=== PATIENT | female | born 1965 | race Caucasian/White ===

== ENCOUNTER 2020-04-18 08:49 | Outpatient (CLI) | payer OTHER ==
--- NOTE | 2020-04-18 09:07 | RAD ---
Exam: Right elbow 4 views: HISTORY: Right elbow pain, old injury COMPARISON: None FINDINGS: Slight fullness of the anterior fat pad, possible small joint effusion. No evidence for fracture, dislocation, or other significant acute osseous abnormality. IMPRESSION: No significant acute process. If patient has persistent nonresolving pain, consider nonemergent follow-up MRI.
== END 2020-04-18 08:50 | disposition home or self-care (01) ==
LOC: BICRAD 08:49
PROVIDERS: ATTEND Family Medicine
DX: M25.521 Pain in right elbow (principal)

== ENCOUNTER 2020-04-27 09:21 | Outpatient (CLI) | payer OTHER | END 2020-04-27 09:22 | disposition home or self-care (01) | LOC: BICMAMMO 09:21 | PROVIDERS: ATTEND Family Medicine | DX: Z12.31 Encounter for screening mammogram for malignant neoplasm of breast (principal) | CPT/HCPCS: 77067 ==

== ENCOUNTER 2020-05-12 10:52 | Outpatient (CLI) | payer OTHER | END 2020-05-12 10:53 | disposition home or self-care (01) | LOC: BICRAD 10:52 | PROVIDERS: ATTEND Family Medicine | DX: M25.511 Pain in right shoulder (principal); G89.29 Other chronic pain; J41.1 Mucopurulent chronic bronchitis; M19.011 Primary osteoarthritis, right shoulder ==

== ENCOUNTER 2020-06-14 08:34 | Outpatient (CLI) | payer OTHER | END 2020-06-14 08:35 | disposition home or self-care (01) | LOC: BICMAMMO 08:34 | PROVIDERS: ATTEND Family Medicine | DX: Z13.820 Encounter for screening for osteoporosis (principal); Z78.0 Asymptomatic menopausal state; M85.89 Other specified disorders of bone density and structure, multiple sites | CPT/HCPCS: 77080 ==

== ENCOUNTER 2024-03-20 10:43 | Inpatient (IN) | payer OTHER ==
[2024-03-20 12:19] LABS: #Basophils 0.05 10x3/uL (0.0-0.2); #Eosinophils Less than 0.03 10x3/uL (0.0-0.7); %Basophils 0.8 % (0.0-1.0); %Eosinophils 0.2 % (0.0-10.0); %Lymphocytes 42.5 % (21.0-51.0); %Monocytes 6.8 % (0.0-10.0); %Neutrophils 49.4 % (42.0-75.0); Hematocrit 38.9 % (36.0-47.0); Hemoglobin 12.8 g/dL (12.0-16.0); Mean Corpuscular HGB CONC 32.9 g/dL (32.0-36.0); Mean Corpuscular Hemoglobin 32.1 pg (27.0-31.0); Mean Corpuscular Volume 97.5 fL (78.0-98.0); Mean Platelet Volume 9.5 fL (7.4-10.4); Platelet Count 225 10x3/uL (130-400); RBC Distribution Width 13.6 % (11.5-14.5); Red Blood Cell (RBC) Count 3.99 mill/uL (4.20-5.40)
[2024-03-20 12:34] LABS: ALT (SGPT) 58 U/L (Less than 34); AST (SGOT) 54 U/L (11-34); Albumin 3.7 g/dL (3.1-4.5); Alkaline Phosphatase 80 U/L (40-110); Anion Gap 11 mmol/L (10-20); BUN (Urea Nitrogen) 16 mg/dL (9.8-20.1); Bilirubin, Total 0.2 mg/dL (0.3-1.2); Calc. Creatinine Clearance 0 mL/min (70-130); Calcium 9.2 mg/dL (7.8-10.44); Carbon Dioxide 27 mmol/L (22-29); Chloride 110 mmol/L (98-107); Estimated GFR 102; Globulin 3.5 g/dL (2.4-3.5); Glucose 97 mg/dL (70-105); Potassium 4.2 mmol/L (3.5-5.1); Protein, Total 7.2 g/dL (6.0-8.3); Sodium 144 mmol/L (136-145)
[2024-03-20] MEDS ORDERED: Iopamidol-370 76% 500 ML MDV (1 ML CHARGE) ONE (12:44)
[2024-03-20] MEDS ORDERED: Ondansetron PF 4 MG/2 ML Vial ONE (13:16)
[2024-03-20] MEDS ORDERED: Morphine 4 MG/ML VIAL ONE (13:20)
[2024-03-20] MEDS ORDERED: Dextrose 50% Abboject 50 ML SYRINGE SLOW IVP PRN (14:11)
[2024-03-20] MEDS ORDERED: Glucagon 1 MG/ML KIT IM PRN (14:11)
[2024-03-20] MEDS ORDERED: hydrALAZINE 20 MG/ML VIAL SLOW IVP PRN (14:11)
[2024-03-20] MEDS ORDERED: Dextrose 5% in Water 1,000 ML IV PRN (14:11)
[2024-03-20] MEDS ORDERED: Ondansetron PF 4 MG/2 ML Vial IVP PRN (14:11)
[2024-03-20] MEDS: Acetaminophen 325 MG TAB PO PRN (15:52)
[2024-03-20] MEDS: traMADol HCl 50 MG TAB PO PRN (15:53)
[2024-03-20 17:30] VITALS: BMI 23.2
[2024-03-20 17:40] LABS: Hemoglobin 12.1 g/dL (12.0-16.0)
[2024-03-20] MEDS ORDERED: Rib Fracture Protocol PO SCH (23:45)
[2024-03-21] MEDS: traMADol HCl 50 MG TAB PO SCH (00:08)
[2024-03-21] MEDS: Acetaminophen 500 MG TAB PO SCH (00:08)
[2024-03-21] MEDS: Morphine 2 MG/ML VIAL SLOW IVP PRN (01:32)
[2024-03-21] MEDS: Ipratropium/Albuterol 3 ML NEB NEB SCH (01:45)
[2024-03-21 04:57] LABS: #Basophils 0.04 10x3/uL (0.0-0.2); #Eosinophils Less than 0.03 10x3/uL (0.0-0.7); %Basophils 0.6 % (0.0-1.0); %Eosinophils 0.2 % (0.0-10.0); %Lymphocytes 54.5 % (21.0-51.0); %Neutrophils 34.5 % (42.0-75.0); Hematocrit 36.3 % (36.0-47.0); Hemoglobin 11.8 g/dL (12.0-16.0); Mean Corpuscular HGB CONC 32.5 g/dL (32.0-36.0); Mean Corpuscular Hemoglobin 32.3 pg (27.0-31.0); Mean Corpuscular Volume 99.5 fL (78.0-98.0); Mean Platelet Volume 9.7 fL (7.4-10.4); Platelet Count 189 10x3/uL (130-400); RBC Distribution Width 13.8 % (11.5-14.5); Red Blood Cell (RBC) Count 3.65 mill/uL (4.20-5.40)
[2024-03-21] MEDS: Ibuprofen 200 MG TAB PO SCH (05:02)
[2024-03-21 05:16] LABS: Anion Gap 12 mmol/L (10-20); BUN (Urea Nitrogen) 20 mg/dL (9.8-20.1); Calc. Creatinine Clearance 79 mL/min (70-130); Calcium 8.5 mg/dL (7.8-10.44); Carbon Dioxide 28 mmol/L (22-29); Chloride 107 mmol/L (98-107); Estimated GFR 100; Glucose 83 mg/dL (70-105); Potassium 4.1 mmol/L (3.5-5.1); Sodium 143 mmol/L (136-145)
[2024-03-21] MEDS: Gabapentin 100 MG CAP PO SCH (08:28)
[2024-03-21] MEDS: Cyclobenzaprine 10 MG TAB PO PRN (08:33)
[2024-03-21 11:23] VITALS: BP 92/52; TEMP 98
== END 2024-03-21 13:14 | disposition home or self-care (01) | DRG 183 ==
LOC: ERS 10:43 → SURG A 15:10
PROVIDERS: ADMIT Student in an Organized Health Care Education/Training Program; ATTEND Student in an Organized Health Care Education/Training Program
DX: S22.42XA Multiple fractures of ribs, left side, initial encounter for closed fracture (principal); S36.032A Major laceration of spleen, initial encounter; I10 Essential (primary) hypertension; E78.5 Hyperlipidemia, unspecified; F12.10 Cannabis abuse, uncomplicated; F17.210 Nicotine dependence, cigarettes, uncomplicated; Z88.0 Allergy status to penicillin; Z90.49 Acquired absence of other specified parts of digestive tract; Z98.891 History of uterine scar from previous surgery; V49.9XXA Car occupant (driver) (passenger) injured in unspecified traffic accident, initial encounter
CPT/HCPCS: 36415; 70450; 71045; 71260; 72125; 74177; 80048; 80053; 85025; 94640; 96374; 96375; G0390; J2270; J2272; J2405; J7620